=== PATIENT | female | born 1960 | race Caucasian/White ===

== ENCOUNTER → 2016-07-11 | Outpatient (CLI) | payer OTHER ==
[~2016-07-11] MED LIST: CARBATROL100 MG PO; FLEXERIL10 MG PO; MOTRIN 800800 MG/TAB PO; NORCO 325 MG-51 TAB PO; PRILOSEC 20MG20 MG PO
== END ==
LOC: COL.RAD 12:32
DX: R19.09 Other intra-abdominal and pelvic swelling, mass and lump (principal); R10.84 Generalized abdominal pain

== ENCOUNTER 2016-07-25 09:16 | Day surgery (SDC) | payer OTHER ==
[~2016-07-25] VITALS: Ht 160 cm; Wt 58.3 kg
[~2016-07-25 09:16] MED LIST changes: -MOTRIN 800800 MG/TAB PO; -PRILOSEC 20MG20 MG PO
[2016-07-25] MEDS ORDERED: PRILOSEC 20MG20 MG PO (10:38)
[2016-07-25] MEDS ORDERED: MOTRIN 800800 MG/TAB PO (10:38)
[2016-07-25 10:43] VITALS: BP 129/88; PULSE 72; TEMP 98.1
[2016-07-25 11:50] VITALS: BP 105/71; PULSE 77; TEMP 98.1
[2016-07-25] MEDS ORDERED: NORCO 325 MG-51 TAB PO (11:50)
[2016-07-25 12:05] VITALS: BP 121/71; PULSE 82
[2016-07-25 12:20] VITALS: BP 125/74; PULSE 54
== END 2016-07-25 12:40 | disposition home or self-care (01) ==
LOC: SDCO 09:16
DX: K41.90 Unilateral femoral hernia, without obstruction or gangrene, not specified as recurrent (principal); K21.9 Gastro-esophageal reflux disease without esophagitis; R56.9 Unspecified convulsions; Z79.899 Other long term (current) drug therapy; Z85.841 Personal history of malignant neoplasm of brain
CPT/HCPCS: C1781; J0690; J2405; J2704; J3010

== ENCOUNTER 2017-05-06 15:25 | Emergency (ER) | payer OTHER ==
[~2017-05-06] VITALS: Ht 160 cm; Wt 59.1 kg
[~2017-05-06 15:25] MED LIST changes: +MOTRIN 800800 MG/TAB PO; +PRILOSEC 20MG20 MG PO
[2017-05-06 15:34] VITALS: BP 161/83; TEMP 98.9
[2017-05-06] MEDS ORDERED: IBU800 M1 PO (17:10)
[2017-05-06] MEDS ORDERED: ULTRAM 50MG TAB50 MG PO (17:10)
[2017-05-06 17:30] LABS: BASO # 0.1 (0.0-0.2); BASO % 1.2 % (0.0-2.0); EOS # 0.1 (0.0-0.7); EOS % 3.2 % (0-4.0); GRAN % 49.8 % (42.2-75.2); HEMATOCRIT 38.1 % (37.0-47.0); HEMOGLOBIN 13.5 g/dl (12.5-16.0); LYMPH # 1.5 (1.2-3.4); LYMPH % 37.5 % (20.0-51.0); MEAN CELL VOLUME 90 fl (80.0-100.0); MEAN CORPUSCULAR HEMOGLOBIN 32 pg (27.0-31.0); MEAN CORPUSCULAR HGB CONC 35 g/dl (33.0-37.0); MONO # 0.3 (0.1-0.6); MONO % 8.1 % (1.7-9.3); PLATELET COUNT 282 K/mm3 (130-400); RED BLOOD COUNT 4.23 M/mm3 (4.10-5.30); WHITE BLOOD COUNT 4.1 K/mm3 (4.8-10.8)
[2017-05-06 17:37] LABS: COLLECTION METHOD CLEAN CATCH
[2017-05-06 18:02] LABS: MUCOUS Present /lpf; PH 7 (5-8); SQUAMOUS EPITHELIAL 0-2 /hpf; URINE APPEARANCE Clear; URINE BACTERIA None Seen /hpf; URINE BILIRUBIN Negative (NEGATIVE); URINE BLOOD Negative (NEGATIVE); URINE COLOR Colorless; URINE GLUCOSE Negative (NEGATIVE); URINE KETONE Negative (NEGATIVE); URINE LEUKOCYTE ESTERASE Negative (NEGATIVE); URINE PROTEIN(semi-quant) Negative (NEGATIVE); URINE RBC 0-2 /hpf; URINE UROBILINOGEN Negative (NEGATIVE); URINE WBC 0-2 /hpf
[2017-05-06] MEDS ORDERED: MEDROL 4MG DOSPA4 MG PO (18:16)
[2017-05-06 18:44] VITALS: PULSE 67
== END 2017-05-06 18:47 | disposition home or self-care (01) ==
LOC: COL.ER 15:25
PROVIDERS: Family Medicine
DX: M48.00 Spinal stenosis, site unspecified (principal); Z98.890 Other specified postprocedural states

== ENCOUNTER → 2017-08-24 | Outpatient (CLI) | payer OTHER ==
[~2017-08-24] MED LIST changes: +IBU800 M1 PO; +MEDROL 4MG DOSPA4 MG PO; +ULTRAM 50MG TAB50 MG PO
== END ==
LOC: MHCPAIN 08:19
DX: G89.29 Other chronic pain (principal); M47.817 Spondylosis without myelopathy or radiculopathy, lumbosacral region; M54.16 Radiculopathy, lumbar region; M53.3 Sacrococcygeal disorders, not elsewhere classified; M96.1 Postlaminectomy syndrome, not elsewhere classified
CPT/HCPCS: G0463

== ENCOUNTER → 2017-09-21 | Outpatient (CLI) | payer OTHER | LOC: MHCPAIN 13:02 | DX: Z01.89 Encounter for other specified special examinations (principal) ==

== ENCOUNTER → 2017-10-16 | Outpatient (CLI) | payer OTHER | LOC: MC.RAD 08:50 | DX: Z12.31 Encounter for screening mammogram for malignant neoplasm of breast (principal); N63.10 Unspecified lump in the right breast, unspecified quadrant ==

== ENCOUNTER → 2017-10-21 | Outpatient (CLI) | payer OTHER | LOC: MC.RAD 14:47 | DX: N60.01 Solitary cyst of right breast (principal) ==

== ENCOUNTER → 2017-11-19 | Outpatient (CLI) | payer OTHER | LOC: COL.RAD 13:01 | DX: M70.62 Trochanteric bursitis, left hip (principal); S76.911A Strain of unspecified muscles, fascia and tendons at thigh level, right thigh, initial encounter; S76.912A Strain of unspecified muscles, fascia and tendons at thigh level, left thigh, initial encounter; M46.1 Sacroiliitis, not elsewhere classified ==